=== PATIENT | female | born 1990 | race Caucasian/White ===

== ENCOUNTER 2017-08-05 12:02 | Emergency (ER) | payer BC, OTHER ==
[~2017-08-05] VITALS: Ht 175.3 cm; Wt 77.3 kg
[~2017-08-05 12:02] MED LIST: BCPILLS PO
[2017-08-05 12:19] VITALS: TEMP 36.6; Ht 175.3 cm; Wt 77.3 kg
[2017-08-05] MEDS ORDERED: DiphenhydrAMINE HCL 50 MG/ML VIAL IV STA (13:27)
[2017-08-05] MEDS ORDERED: MAGNESIUM SULFATE 1GM / D5W 1 GM BAG IV STA (13:27)
[2017-08-05] MEDS ORDERED: SODIUM CHLORIDE 0.9% 1000ML 1,000 ML IV STA (13:27)
[2017-08-05] MEDS ORDERED: KETOROLAC TROMETHAMINE 30 MG/ML VIAL IV STA (13:27)
[2017-08-05] MEDS ORDERED: PROCHLORPERAZINE 5 MG/ML 2 ML VIAL IV STA (13:27)
[2017-08-05] MEDS ORDERED: SODIUM CHLORIDE 0.65% NA SOLN 45 ML (OCEAN) STA (13:29)
[2017-08-05] MEDS ORDERED: SULFAMETHOXAZOLE/TRIMETHOPRIM DS 800/160MG TAB PO STA (13:29)
[2017-08-05] MEDS ORDERED: SUMA50TA15 PO (13:30)
[2017-08-05] MEDS ORDERED: SPR28 PO (13:30)
[2017-08-05] MEDS ORDERED: ATV/1 PO (13:30)
--- NOTE | 2017-08-05 13:30 | EMERGENCY ROOM VISIT NOTE ---
History Report prepared by Gabriellaibkeaton: Lisa Clancy Under the Supervision of: Dr. Iavn Osuna M.D. First contact with patient: 13:17 Chief Complaint: HEADACHE Stated Complaint: MIGRAINE, VOMITING History of Present Illness The patient is a 26 year old female who presents to the Emergency Room with complaints of generalized illness beginning a couple weeks ago. The patient notes fatigue, body ache, sinus drainage, blurry vision, headache and neck pain beginning last night. She notes some sores on back which started 3 weeks ago and was given prednisone by Dr. Terry. The patient has 3 more days on prednisone but denies taking it today. She notes her menstrual period ended 3 days ago and denies any chance of . Source of History: patient Onset: a couple weeks ago Position: other (generalized) Quality: other (illness) Associated Symptoms: + headache, + neck pain, + fatigue Review of Systems See HPI for pertinent positives & negatives. A total of 10 systems reviewed and were otherwise negative. Family History No pertinent family history Social History Smoking Status: Never Smoker Alcohol Use: occasionally Drug Use: none Marital Status: single Housing Status: lives with roommate Occupation Status: [employer] student Current/Historical Medications Scheduled Ethinyl Estrad/Norgestimate (Sprintec 28), 1 TAB PO DAILY Sulfa/Trimethoprim (Bactrim Ds 800MG/160MG), 1 TAB PO BID Scheduled PRN Lorazepam (Ativan), 1 MG PO Q6H PRN for Anxiety Sumatriptan Succinate (Imitrex), 50 MG PO PRN PRN for Migraine Allergies Coded Allergies: Nickel (Verified Allergy, Unknown, RASH, 08/05/17) No Known Drug Allergy (Verified Allergy, Unknown, none, 08/05/17) Amoxicillin (Unverified Adverse Reaction, Unknown, NAUSEA, 08/05/17) Physical Exam Vital Signs Date Time Temp Pulse Resp B/P (MAP) Pulse Ox O2 Delivery O2 Flow Rate FiO2 08/05/17 15:16 86 16 117/90 100 08/05/17 15:03 86 16 117/90 100 Room Air 08/05/17 14:08 72 16 124/96 100 Room Air 08/05/17 14:08 100 Room Air 08/05/17 13:58 82 08/05/17 12:19 36.6 97 20 140/96 99 Room Air Physical Exam GENERAL: Patient is a healthy-appearing well-nourished female. No evidence of meningitis or encephalitis on exam. HEAD: Normocephalic atraumatic EYES: Ocular movements intact pupils equal and react to light OROPHARYNX mucous membranes are moist no exudates present no erythema or edema present NECK: Supple no nuchal rigidity CHEST: Good equal expansion LUNGS: Clear and equal to auscultation CARDIAC: Normal S1 and S2 ABDOMEN: Soft nontender no guarding BACK: No CVA tenderness EXTREMITIES: No pain upon palpation normal muscle strength in all groups no clubbing cyanosis or edema NEURO: Patient is following commands and answering questions appropriately. Alert and oriented x3 Cranial Nerves 2-12 grossly intact Medical Decision & Procedures ER Provider Diagnostic Interpretation: Radiology results as stated below per my review and radiologist interpretation: HEAD WITHOUT CONTRAST (CT) Findings: The paranasal sinuses and mastoid air cells are clear. The calvarium and skull base are intact. The ventricles and sulci are within normal limits. There is no mass, hematoma, midline shift, or acute infarct. Impression: No acute intracranial abnormality. The above report was generated using voice recognition software. It may contain grammatical, syntax or spelling errors. Electronically signed by: Ashwin Tavarez M.D. Laboratory Results 08/05/17 14:00 Red Blood Count 4.26, Mean Corpuscular Volume 92.0, Mean Corpuscular Hemoglobin 29.8, Mean Corpuscular Hemoglobin Concent 32.4, Mean Platelet Volume 10.3, Neutrophils (%) (Auto) 41.5, Lymphocytes (%) (Auto) 45.4, Monocytes (%) (Auto) 11.8, Eosinophils (%) (Auto) 0.8, Basophils (%) (Auto) 0.2, Neutrophils # (Auto ) 3.86, Lymphocytes # (Auto) 4.22, Monocytes # (Auto) 1.10, Eosinophils # (Auto ) 0.07, Basophils # (Auto) 0.02 08/05/17 14:00 Test 08/05/17 13:55 08/05/17 14:00 Influenza Type A (RT-PCR) Neg for Influ A (NEG) Influenza Type A Antigen Neg for Influ A (NEG) Influenza Type B Antigen Neg for Influ B (NEG) Influenza Type B (RT-PCR) Neg for Influ B (NEG) White Blood Count 9.30 K/uL (4.8-10.8) Red Blood Count 4.26 M/uL (4.2-5.4) Hemoglobin 12.7 g/dL (12.0-16.0) Hematocrit 39.2 % (37-47) Mean Corpuscular Volume 92.0 fL (80-100) Mean Corpuscular Hemoglobin 29.8 pg (25-34) Mean Corpuscular Hemoglobin Concent 32.4 g/dl (32-36) Platelet Count 258 K/uL (130-400) Mean Platelet Volume 10.3 fL (7.4-10.4) Neutrophils (%) (Auto) 41.5 % Lymphocytes (%) (Auto) 45.4 % Monocytes (%) (Auto) 11.8 % Eosinophils (%) (Auto) 0.8 % Basophils (%) (Auto) 0.2 % Neutrophils # (Auto) 3.86 K/uL (1.4-6.5) Lymphocytes # (Auto) 4.22 K/uL (1.2-3.4) Monocytes # (Auto) 1.10 K/uL (0.11-0.59) Eosinophils # (Auto) 0.07 K/uL (0-0.5) Basophils # (Auto) 0.02 K/uL (0-0.2) RDW Standard Deviation 43.6 fL (36.4-46.3) RDW Coefficient of Variation 12.9 % (11.5-14.5) Immature Granulocyte % (Auto) 0.3 % Immature Granulocyte # (Auto) 0.03 K/uL (0.00-0.02) Urine Color YELLOW Urine Appearance TURBID (CLEAR) Urine pH 8.5 (4.5-7.5) Urine Specific Neely 1.019 (1.000-1.030) Urine Protein NEG (NEG) Urine Glucose (UA) NEG (NEG) Urine Ketones NEG (NEG) Urine Occult Blood NEG (NEG) Urine Nitrite NEG (NEG) Urine Bilirubin NEG (NEG) Urine Urobilinogen NEG (NEG) Urine Leukocyte Esterase NEG (NEG) Urine WBC (Auto) 1-5 /hpf (0-5) Urine RBC (Auto) 0-4 /hpf (0-4) Urine Hyaline Casts (Auto) 1-5 /lpf (0-5) Urine Epithelial Cells (Auto) >30 /lpf (0-5) Urine Bacteria (Auto) NEG (NEG) Urine Crystals AMORPHOUS SEDIMENT (NONE Anion Gap 7.0 mmol/L (3-11) Est Creatinine Clear Calc Drug Dose 153.7 ml/min Estimated GFR () 147.4 Estimated GFR (Non- 127.2 BUN/Creatinine Ratio 24.1 (10-20) Calcium Level 9.0 mg/dl (8.5-10.1) Total Bilirubin 0.3 mg/dl (0.2-1) Direct Bilirubin < 0.1 mg/dl (0-0.2) Aspartate Amino Transf (AST/SGOT) 10 U/L (15-37) Alanine Aminotransferase (ALT/SGPT) 17 U/L (12-78) Alkaline Phosphatase 46 U/L (45-117) Total Protein 7.9 gm/dl (6.4-8.2) Albumin 4.1 gm/dl (3.4-5.0) Human Chorionic Gonadotropin, Qual NEG (NEG) Lyme Disease IgG Antibody NEG (NEG) Lyme Disease IgM Antibody NEG (NEG) Monoscreen NEG (NEG) Labs reviewed by ED physician. Medications Administered Medications (Trade) Dose Ordered Sig/Chirag Route Start Time Stop Time Status Last Admin Dose Admin Sodium Chloride 1,000 ml @ 999 mls/hr Q1H1M STAT IV 08/05/17 13:27 08/05/17 14:27 DC 08/05/17 14:17 999 MLS/HR Ketorolac Tromethamine (Toradol Inj) 30 mg NOW STAT IV 08/05/17 13:27 08/05/17 13:30 DC 08/05/17 14:17 30 MG Magnesium Sulfate (Magnesium Sulfate) 1 gm NOW STAT IV 08/05/17 13:27 08/05/17 13:30 DC 08/05/17 14:17 1 GM Prochlorperazine Edisylate (Compazine Inj) 10 mg NOW STAT IV 08/05/17 13:27 08/05/17 13:30 DC 08/05/17 14:17 10 MG Diphenhydramine HCl (Benadryl Inj) 50 mg NOW STAT IV 08/05/17 13:27 08/05/17 13:30 DC 08/05/17 14:16 50 MG Trimethoprim/ Sulfamethoxazole (Septra Ds 800/ 160MG Tab) 1 tab NOW STAT PO 08/05/17 13:29 08/05/17 13:30 DC 08/05/17 14:15 1 TAB Sodium Chloride (Cumings Nasal [place]) 2 sprays NOW STAT NA 08/05/17 13:29 08/05/17 13:30 DC 08/05/17 14:15 2 SPRAYS Dexamethasone Sodium Phosphate (Decadron Inj) 10 mg NOW STAT IV 08/05/17 14:51 08/05/17 14:53 DC 08/05/17 15:02 10 MG ED Course 1325: Past medical records reviewed. The patient was evaluated in room B3B. A complete history and physical examination was performed. 1327: Benadryl inj 50 mg IV, Compazine Inj 10 mg IV, Magnesium Sulfate 1 gm IV, Toradol Inj 30 mg IV, Sodium Chloride 1000 ml @ 999 mls/hr. 1329: Sodium Chloride 2 sprays NA, Trimethoprim/Sulfamethoxazole 1 tab PO. 1451: Decadron Inj 10 mg IV. 1507: Upon reexamination the patient is resting. I discussed results and treatment plan with the patient. She verbalizes agreement and understanding. The patient is ready for discharge. Medical Decision Differential diagnosis: Etiologies such as migraine headache, meningitis, sinusitis, CO exposure, ICH, SAH, infection, tumor, headache, sinus thrombosis, arterial dissection, as well as others were entertained. This is a 26-year-old female who presents emergency Department with sinusitis- like symptoms. I will note that the patient does not have any evidence of meningitis or encephalitis on examination. In addition the patient does not have an elevation in her white blood count cell count and has a normal CAT scan of her head. An IV was established, the patient given normal saline bolus, Toradol, Compazine, Benadryl, magnesium. Repeat examination revealed much improvement the patient's symptoms. I believe is reasonable to treat this patient for sinusitis that she has had in the past. For this reason and because she is allergic to amoxicillin the patient was started on Bactrim along with Cumings [place]. I recommended follow-up with the patient's primary care physician. Patient was in agreement with the treatment plan. Medication Reconcilliation Current Medication List: was personally reviewed by me Blood Pressure Screening Patient's blood pressure: Normal blood pressure Impression Primary Impression: Headache Scribe Attestation The scribe's documentation has been prepared under my direction and personally reviewed by me in its entirety. I confirm that the note above accurately reflects all work, treatment, procedures, and medical decision making performed by me. Departure Information Dispostion Home / Self-Care Prescriptions Sulfa/Trimethoprim (Bactrim Ds 800MG/160MG) Tab 1 TAB PO BID for 10 Days, #20 TAB Prov: Ivan Osuna MD 08/05/17 Referrals Dalia Haji D.O. (PCP) Forms HOME CARE DOCUMENTATION FORM, IMPORTANT VISIT INFORMATION Patient Instructions ED Sinusitis Abx Tx, Headache Pain, My [facility] Additional Instructions You have been examined and treated today on an emergency basis only. This is not a substitute for, or an effort to provide, complete comprehensive medical care. It is impossible to recognize and treat all injuries or illnesses in a single emergency department visit. It is therefore important that you follow up closely with Dr Haji. Call as soon as possible for an appointment. Thank you for your time and consideration. I look forward to speaking with you again soon. Please don't hesitate to call us if you have any questions. Problem Qualifiers Primary Impression: Headache Headache type: unspecified Headache chronicity pattern: unspecified pattern Intractability: not intractable Qualified Codes: R51 - Headache
[2017-08-05 14:08] VITALS: O2SAT 100
[2017-08-05 14:19] LABS: URINE APPEARANCE TURBID (CLEAR); URINE BILIRUBIN NEG (NEG); URINE COLOR YELLOW; URINE EPITHELIAL CELL AUTO >30 /lpf (0-5); URINE NITRITE NEG (NEG); URINE PH 8.5 (4.5-7.5); URINE SPECIFIC GRAVITY 1.019 (1.000-1.030); UROBILINOGEN NEG (NEG)
[2017-08-05 14:21] LABS: MANUAL MICROSCOPIC REQUIRED? NO; REVIEW REQ? YES
[2017-08-05 14:27] LABS: BASO % 0.2 %; BASO ABS # 0.02 K/uL (0-0.2); COMPLETE YES; EOS % 0.8 %; HEMATOCRIT 39.2 % (37-47); IG% 0.3 %; LYMPH % 45.4 %; LYMPH ABS # 4.22 K/uL (1.2-3.4); MEAN CORPUSCULAR HEMOGLOBIN 29.8 pg (25-34); MEAN CORPUSCULAR HGB CONC 32.4 g/dl (32-36); MEAN PLATELET VOLUME 10.3 fL (7.4-10.4); MONO % 11.8 %; NEUT % 41.5 %; PLATELET COUNT 258 K/uL (130-400); RED BLOOD COUNT 4.26 M/uL (4.2-5.4)
--- NOTE | 2017-08-05 14:39 | DIAGNOSTIC IMAGING REPORT ---
HEAD WITHOUT CONTRAST (CT) CT DOSE: 537.48 mGy.cm HISTORY: Mental status change. Nausea. Vomiting. Pt c/o AMS TECHNIQUE: Multiaxial CT images of the head were performed without the use of intravenous contrast. A dose lowering technique was utilized adhering to the principles of ALARA. Comparison: 01/30/2012 Findings: The paranasal sinuses and mastoid air cells are clear. The calvarium and skull base are intact. The ventricles and sulci are within normal limits. There is no mass, hematoma, midline shift, or acute infarct. Impression: No acute intracranial abnormality. The above report was generated using voice recognition software. It may contain grammatical, syntax or spelling errors. Electronically signed by: Ashwin Tavarez M.D. 08/05/2017 2:37 PM Dictated Date/Time: 08/05/2017 2:35 PM
[2017-08-05 14:44] LABS: PREG INTERNAL NEGATIVE QC NEG CLEAR BACKGROUND; PREG INTERNAL POSITIVE QC POS CONTROL LINE
[2017-08-05 14:48] LABS: ALT/SGPT 17 U/L (12-78); BLOOD UREA NITROGEN 14 mg/dl (7-18); BUN/CREATININE RATIO 24.1 (10-20); CARBON DIOXIDE 29 mmol/L (21-32); CHLORIDE 104 mmol/L (98-107); CREATININE 0.58 mg/dl (0.60-1.20); GLUCOSE 81 mg/dl (70-99); POTASSIUM 3.2 mmol/L (3.5-5.1); SODIUM 139 mmol/L (136-145)
[2017-08-05 14:50] LABS: ALKALINE PHOSPHATASE 46 U/L (45-117); AST/SGOT 10 U/L (15-37)
[2017-08-05] MEDS ORDERED: DEXAMETHASONE SOD INJ 10 MG/ML VIAL IV STA (14:51)
[2017-08-05] MEDS ORDERED: SULF800T23 PO (14:54)
[2017-08-05 15:10] LABS: LYME DISEASE AB IGG NEG (NEG); LYME DISEASE AB IGM NEG (NEG)
[2017-08-05 15:16] VITALS: BP 117/90; PULSE 86; O2SAT 100
[2017-08-05 15:49] LABS: INFLUENZA A PCR Neg for Influ A (NEG); INFLUENZA B PCR Neg for Influ B (NEG)
== END 2017-08-05 15:17 | disposition home or self-care (01) ==
LOC: C.EDB 12:05
DX: R51 Headache (principal); Z88.1 Allergy status to other antibiotic agents; Z91.09 Other allergy status, other than to drugs and biological substances

== ENCOUNTER → 2017-11-12 | Outpatient (CLI) | payer OTHER ==
[~2017-11-12] MED LIST changes: +ATV/1 PO; -BCPILLS PO; +SPR28 PO; +SUMA50TA15 PO
--- NOTE | 2017-11-12 15:31 | DIAGNOSTIC IMAGING REPORT ---
L RIBS UNILATERAL WITH PA CHEST (5 views) CLINICAL HISTORY: R07.81 left rib pain COMPARISON STUDY: Chest x-ray dated 01/23/2016 FINDINGS: The erect chest reveals no pneumothorax. There is no focal pulmonary consolidation. No left-sided rib fractures are visualized. No destructive lesions are visualized. IMPRESSION: No evidence of pneumothorax. No left-sided rib fractures are visualized. Electronically signed by: Claude Teague M.D. 11/12/2017 3:29 PM Dictated Date/Time: 11/12/2017 3:28 PM
== END | disposition home or self-care (01) ==
LOC: C.RAD1850 15:13
PROVIDERS: ATTEND Family Medicine
DX: R07.81 Pleurodynia (principal)